=== PATIENT | male | born 1995 | race Caucasian/White ===

== ENCOUNTER → 2021-04-16 09:08 | Outpatient (BNVA) | payer SELFPAY | PROVIDERS: Family Provider Nurse Practitioner; PCP Nurse Practitioner; Visit Provider Dermatology | DX: Z01.89 Encounter for other specified special examinations (principal) ==

== ENCOUNTER → 2021-04-23 16:36 | Outpatient (BNVA) | payer SELFPAY | PROVIDERS: Family Provider Nurse Practitioner; PCP Nurse Practitioner; Visit Provider Nurse Practitioner Family | DX: R53.83 Other fatigue (principal); G47.00 Insomnia, unspecified | CPT/HCPCS: 84403 ==

== ENCOUNTER 2021-07-16 03:53 | Emergency (ER) | payer SELFPAY ==
--- NOTE | 2021-07-16 03:55 | XRR_ITS ---
PROCEDURE INFORMATION: Exam: XR Chest Exam date and time: 07/16/2021 3:55 AM Age: 26 years old Clinical indication: Fever TECHNIQUE: Imaging protocol: XR of the chest. Views: 1 view. COMPARISON: No relevant prior studies available. FINDINGS: Lungs: Prominent lung volumes. No consolidation or suggestion of hazy foci in the lungs. Possible very small calcified granuloma in the right mid lung. Pleural spaces: No pneumothorax or apparent pleural fluid. Left lateral angle not completely included. Heart/Mediastinum: Unremarkable. No cardiomegaly. Bones/joints: Mild S-shaped scoliosis. No suggestion of acute bony disease. XR/XR chest 1V portable [id number] IMPRESSION: No acute findings.
[2021-07-16 03:56] VITALS: BP 118/71; PULSE 83; RESP 16; TEMP 36.7; O2SAT 97; BMI 22.1
[2021-07-16 04:01] VITALS: O2SAT 97
--- NOTE | 2021-07-16 04:16 | W.ED.COVID ---
HPI - COVID General: Chief Complaint: COVID symptoms Stated Complaint: congestion, fever, Time Seen by Provider: 07/16/21 03:55 Source: patient Mode of arrival: ambulatory Limitations: no limitations Triage information: Has fever, cough or shortness of breath. No known COVID + exposure last 14 days History of Present Illness: HPI Narrative: 26-year-old male states over last 2 to 3 days had cough congestion along with body aches and low-grade fevers. He states he is also had headaches. He states he is concerned he may have Covid. He did have Covid last year and did not have the vaccine. Denies any vomiting or diarrhea. Denies any chest pain or abdominal pain. Patient here is comfortable. COVID 19 common symptoms: positive fever(s), chills, non-productive cough, body aches and headache(s); negative throat pain, nausea, vomiting or diarrhea COVID 19 other sytmptoms: negative chest pain COVID Results: No Data to Display Review of Systems Const: Reports: fever(s), chills and body aches Eyes: Denies: blurry vision or eye discomfort ENMT: Denies: throat pain or dental pain Card: Denies: chest pain Resp: Reports: non-productive cough GI: Denies: abdominal pain, nausea, vomiting or diarrhea : Denies: dysuria Musc: Denies: neck pain or back pain Skin/Breast: Denies: rash Neuro: Reports: headache(s) Psych: Denies: depression Earl/Lymph: Denies: easy bruising All/Imm: Denies: urticaria PFSH ED PFSH: Medical History Personal history of nicotine dependence Surgical History History of hand surgery Left index finger repair Family History Father Hypertension Social History Smoking and tobacco status: current every day smoker Adopted: No Housing: Other Details: Currently in [facility] Marital status: Number of children: 2 Highest education level completed: 9th Grade Current gender identity: Male Physical Exam Const: COMMON NORMALS: no acute distress, patient oriented x3 and healthy appearing HENMT: COMMON NORMALS: normocephalic and atraumatic HEAD & SCALP: normocephalic and atraumatic MOUTH: Normal oral and palatal mucosa present THROAT: posterior oropharynx normal Eye: COMMON NORMALS: Equal, round and reactive pupils present and EOMs intact bilaterally PUPIL: Yes Equal, round and reactive pupils present Neck/C-Spine: COMMON NORMALS: full ROM and supple OTHER: no menisgsmus Chest: COMMONS NORMALS: normal inspection of the chest and normal palpation of entire chest wall Resp: COMMON NORMALS: normal respiratory effort, No retractions, No use of accessory muscles and clear to auscultation bilaterally AUSCULTATION: clear to auscultation bilaterally Cardio: COMMON NORMALS: regular rate, regular rhythm and No murmurs present (Cardio) RATE: regular rate RHYTHM: regular rhythm GI: COMMON NORMALS: Normal to inspection, nondistended, normoactive bowel sounds present, Soft to palpation, non-tender and no masses PALPATION: Yes Soft to palpation Extremity: COMMON NORMALS: normal to inspection and full ROM Neuro: COMMON NORMALS: patient oriented x3, moves all extremities and no focal motor deficits Psych: COMMON NORMALS: mental status grossly normal, Normal thought process present and cooperative THOUGHT PROCESS: Normal thought process present Skin: COMMON NORMALS: no rashes or lesions noted and no wounds GENERAL SKIN EXAM: no rashes or lesions noted Course Vital Signs: Vital signs: Vital Signs Temperature 98.1 F 07/16/21 03:56 Pulse Rate 83 07/16/21 03:56 Respiratory Rate 16 07/16/21 03:56 Blood Pressure 118/71 07/16/21 03:56 Pulse Oximetry 97 07/16/21 04:01 MDM - COVID MDM Narrative: Medical decision making narrative: Patient presents here with symptoms likely viral syndrome. He is well-appearing here and has no signs of meningitis or severe infection. His x-ray shows no signs of pneumonia. His vital signs here are normal. We'll do Covid PCR he is stable for discharge. He is to follow-up his PCP and return if worsening. 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
[2021-07-16] MEDS: acetaminophen 500 mg Tablet 1000 MG PO (04:41)
[2021-07-16 05:17] VITALS: BP 122/77; PULSE 80; RESP 20; O2SAT 99
[2021-07-16 15:22] LABS: Coronavirus Test Green County Detected
== END 2021-07-16 05:08 | disposition home or self-care (01) ==
PROVIDERS: Emergency Provider Emergency Medicine
DX: U07.1 COVID-19 (principal); F17.210 Nicotine dependence, cigarettes, uncomplicated
CPT/HCPCS: 71045; 87635; 99283

== ENCOUNTER → 2021-09-25 11:30 | Outpatient (BNVA) | payer OTHER, SELFPAY | PROVIDERS: Visit Provider Registered Nurse Neonatal Intensive Care | DX: Z20.822 Contact with and (suspected) exposure to COVID-19 (principal) | CPT/HCPCS: 87400; 87635 ==

== ENCOUNTER → 2022-03-21 09:18 | Outpatient (BNVA) | payer SELFPAY | PROVIDERS: Visit Provider Nurse Practitioner Family | DX: R79.89 Other specified abnormal findings of blood chemistry (principal); F41.9 Anxiety disorder, unspecified; G47.9 Sleep disorder, unspecified | CPT/HCPCS: 84403 ==

== ENCOUNTER 2023-02-07 11:25 | Emergency (ER) | payer SELFPAY ==
[2023-02-07 11:32] VITALS: BP 182/81; PULSE 86; RESP 16; TEMP 37.2; O2SAT 97; BMI 22.1
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
[2023-02-07 12:25] LABS: Basophils # 0.1 10^3/uL (0.0-0.1); Basophils % 0.5 %; Eosinophils # 0.1 10^3/uL (0.0-0.8); Eosinophils % 0.4 %; Hematocrit 48.5 % (42.0-52.0); Hemoglobin 16.8 g/dL (11.7-16.6); Lymphocytes # 2.1 10^3/uL (0.8-4.8); Lymphocytes % 17.8 %; Mean Corpuscular HGB Conc 34.6 g/dL (30.0-36.0); Mean Corpuscular Hemoglobin 31.1 pg (28.0-34.0); Mean Corpuscular Volume 89.6 fl (80-94); Mean Platelet Volume 9.9 fL (7.4-10.4); Monocytes # 1.6 10^3/uL (0.2-0.9); Monocytes % 13.4 %; Neutrophils # 7.83 10^3/uL (1.8-7.7); Neutrophils % 67.6 %; Nucleated Red Blood Cells % 0 %; Platelet Count 259 10^3/cmm (130-400); Red Blood Count 5.41 10^6/uL (4.1-5.3); Red Cell Distribution Width 13.1 % (12.1-15.1); White Blood Count 11.6 10^3/uL (4.0-10.0)
[2023-02-07] MEDS: iohexol 350 mg/mL 500 mL Btl (per mL) IV (12:41)
[2023-02-07 12:54] LABS: Alanine Aminotransferase 48 U/L (0-41); Albumin Level 4.5 g/dL (3.5-5.2); Alkaline Phosphatase 47 U/L (40-130); Anion Gap 16.3 (5-19); Aspartate Amino Transferase 78 U/L (0-40); Blood Urea Nitrogen 9 mg/dL (6-20); Calcium 9.2 mg/dL (8.5-10.5); Carbon Dioxide 25 mmol/L (22-29); Chloride 99 mmol/L (98-107); Globulin 3.3 g/dL (1.3-4.6); Glucose 100 mg/dL (65-115); Osmolality Calculated 281 mOsm/kg (285-295); Potassium 4.3 mmol/L (3.5-5.1); Sodium 136 mmol/L (136-145); Total Bilirubin 2.7 mg/dL (0.15-1.2); Total Protein 7.8 g/dL (6.6-8.7)
--- NOTE | 2023-02-07 12:58 | PC.NURSE ---
pt still in imaging, unable to give medications at this time
[2023-02-07] MEDS: ondansetron 2 mg/ML SDV 2 mL 4 MG IVP (13:09)
[2023-02-07 13:15] VITALS: RESP 18; O2SAT 98
[2023-02-07] MEDS: fentaNYL 50 mcg/mL INJ 2mL IVP (13:15)
[2023-02-07 13:49] VITALS: O2SAT 99
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
--- NOTE | 2023-02-09 08:53 | DCPLANNER ---
Addendum entered by Ashly Borja 02/13/23 08:44: Patient had a follow up appointment scheduled with ortho - patient did attend appointment. Addendum entered by Ashly Borja 02/10/23 11:31: Patient has a follow up appointment scheduled for Thursday, February 11, 2023 at 10:[address] Downey at ortho. Original Note: manager shop had message to schedule a follow up appointment for patient with ortho. manager shop sent patients information to the front office staff at ortho. Patients information will be printed and reviewed. Clinic will call patient with appointment information.
--- NOTE | 2023-02-11 15:33 | DCPLANNER ---
Addendum entered by Ashly Borja 02/11/23 15:41: Patient called case management specialist back stating that his primary care physician is Kailyn Thorpe at the [facility]. Original Note: manager generation called patient due to no primary care physician - no answer at this time.
== END 2023-02-07 15:37 | disposition home or self-care (01) ==
PROVIDERS: Emergency Provider Nurse Practitioner; PCP Nurse Practitioner
DX: S82.002A Unspecified fracture of left patella, initial encounter for closed fracture (principal); M17.12 Unilateral primary osteoarthritis, left knee; M25.062 Hemarthrosis, left knee; S30.0XXA Contusion of lower back and pelvis, initial encounter; S00.83XA Contusion of other part of head, initial encounter; Z87.891 Personal history of nicotine dependence; Y04.8XXA Assault by other bodily force, initial encounter; M22.8X2 Other disorders of patella, left knee
CPT/HCPCS: 29530; 70450; 70486; 71045; 71100; 72125; 73562; 73700; 74177; 80053; 85025; 96374; 96375; 99285; E0114; J2405; J3010; Q9967

== ENCOUNTER → 2023-02-11 10:22 | Outpatient (BNVA) | payer SELFPAY | PROVIDERS: Referring Provider Nurse Practitioner; Visit Provider Specialist | DX: M25.062 Hemarthrosis, left knee (principal); T07.XXXA Unspecified multiple injuries, initial encounter; Y04.0XXA Assault by unarmed brawl or fight, initial encounter; W18.39XA Other fall on same level, initial encounter | CPT/HCPCS: 73562 ==